=== PATIENT | male | born 1995 | race Caucasian/White ===

== ENCOUNTER 2021-08-05 08:49 | Emergency (ER) | payer OTHER, MEDICAID, SELFPAY ==
[2021-08-05 09:04] VITALS: BP 158/88; PULSE 94; RESP 17; TEMP 36.9; O2SAT 100; BMI 25.7
--- NOTE | 2021-08-05 09:08 | ED.DENTAL ---
HPI - Dental/Oral General Chief complaint: Dental/Oral Stated complaint: sores on the side of tounge Time Seen by Provider: 08/05/21 09:03 Source: patient Mode of arrival: Ambulatory Limitations: no limitations History of Present Illness HPI Narrative: This is a 6-year-old male who presents with sores on the right side of his tongue. Patient states he started to developed dental abscess and swelling and pain of his right jaw. Patient states he saw the dentist. They started him on Augmentin. Patient noted that there single sore on the side of his tongue he mentioned it to the dentist but they did not really discuss it with him. He has now developed several more on that side. He has noted some white spots on his tongue and gums. Patient states that they are painful. He has not had this problem in the past. The sores were there before he started antibiotics. He states he is otherwise healthy, no prior medical issues. He was treated for gonorrhea last January and was concerned about possible infection. He is with the same partner. He states he received appropriate treatment as did she. Patient has had a little bit of sore throat and discomfort. No difficulty with swallowing, no speech changes. No fevers. No swelling of the oropharynx, lips or tongue. Patient does smoke, no illicit. Related Data Previous Rx's Medication Instructions Recorded nystatin 100,000 unit/mL oral 500,000 unit (5 mL) PO QID 14 Days 08/05/21 suspension #280 ml Review of Systems Review of Systems ROS Unobtainable: All systems reviewed & are unremarkable except as noted in HPI and below Patient History Social History Smoking Status: Current every day smoker Exam Narrative Exam Narrative: GEN: well nourished, well appearing male, alert and oriented x 3, patient appears to be in mild distress. HEENT: Atraumatic, pupils are equal round reactive to light, extraocular movements are intact, nares are clear, TMs are clear with no fluid, there is no conjunctival pallor. Throat is clear without any exudates, erythema, tonsillar enlargement or uvular deviation, patient has white discoloration of the top of the tongue he also has patchy whitish discoloration of the gums and 3 small oral ulcers on the right side of the tongue. Tissue otherwise appears pink and healthy, has poor dentition but no significant swelling, signs of fluctuance or obvious abscess on exam. HEART: Regular rate and rhythm without murmur, clicks, rubs. LUNGS:Lungs clear to auscultation, no wheezes, rales, crackles, chest moves symmetrically ABD:bowel sounds normal, soft, non-tender, no guarding, rebound, rigidity, no masses noted, no hepatosplenomegaly MSCL: normal gait NEURO:CN 2-12 intact, sensation normal SKIN: No rash, erythema or other skin changes. Initial Vital Signs Initial Vital Signs: Vital Signs Temperature 98.5 F 08/05/21 09:04 Pulse Rate 94 H 08/05/21 09:04 Respiratory Rate 17 08/05/21 09:04 Blood Pressure 158/88 H 08/05/21 09:04 Pulse Oximetry 100 08/05/21 09:04 Course Orders Ordered: ED Orders 08/05/21 09:20 Chlamydia/Gonorrhea Pharyngeal Stat Vital Signs Vital signs: Vital Signs - 8 hr 08/05/21 09:04 Temperature 98.5 F Pulse Rate 94 H Respiratory Rate 17 Blood Pressure 158/88 H Pulse Oximetry 100 MDM - Dental/Oral Lab Data Labs: Lab Results 08/05/21 Range/Units 09:43 C.trachomatis RNA (TMA) Negative (Negative) N.gonorrhoeae RNA (TMA) Negative (Negative) [facility] Narrative Medical decision making narrative: This is a 26 old male with sores on the side of his tongue as well as recent dental infection. Patient is on amoxicillin but source showed up before he started antibiotics. He is being treated for a dental abscess. He has patches of whitish discoloration that seem most consistent with thrush. He is concerned about possible gonorrhea and was treated appropriately with antibiotics as well as his partner last January. Patient was swabbed but not initiated on treatment as his physical exam does not appear consistent. Plan to start oral nystatin. Patient to follow-up with his dentist for recheck. Discharge Plan Departure Patient Disposition: Home Clinical Impression: Oral ulcer Instructions: Thrush-Adult Activity Restrictions/Additional Instructions: Please follow-up with the dentist for recheck and to make sure that your ulcers and skin changes inside your mouth are resolving. If these are persisting even after treatment and her culture is negative you should have further evaluation for immune suppression and full STI testing. Your culture is pending and usually takes several days to result. If positive you should receive a phone call. Here welcome to call to follow up your results. Smoking also increases your risk of thrush Swish nystatin 4 times daily in her mouth and spit for 14 days. Prescription sent to [facility] in [place]. Please return for increasing swelling, external rash, redness, swelling of lips, tongue or mouth difficulty or inability to swallow urine saliva secretions or other new or concerning symptoms. Prescriptions: New nystatin 100,000 unit/mL suspension 500,000 unit PO QID 14 Days Qty: 280 0RF Rx Instructions: administer 1/2 of dose in each side of the mouth
[2021-08-07 03:32] LABS: C.trachomatis RNA Negative (Negative); N.gonorrhoeae RNA Negative (Negative)
== END 2021-08-05 09:47 | disposition home or self-care (01) ==
PROVIDERS: Emergency Provider Emergency Medicine
DX: K12.1 Other forms of stomatitis (principal)
CPT/HCPCS: 87491; 87591; 99281; 99282

== ENCOUNTER 2021-11-26 09:08 | Emergency (ER) | payer OTHER, MEDICAID, SELFPAY ==
[2021-11-26 09:22] VITALS: BP 141/75; PULSE 103; RESP 18; TEMP 36.4; O2SAT 99; BMI 25.7
--- NOTE | 2021-11-26 09:26 | DI.RAD.S_ITS ---
PROCEDURE: XR WRIST LT MIN 3V INDICATIONS: deformity TECHNIQUE: 4 views of the wrist were acquired. COMPARISON: None. FINDINGS: Bones: Postsurgical changes of prior ORIF of the distal left radius. There is a comminuted, intra-articular fracture of the distal left radius. There is also a minimally displaced ulnar styloid process fracture. Scaphoid view: No definite scaphoid fracture seen. Scapholunate interval appears maintained. Soft tissues: No suspicious soft tissue calcifications. IMPRESSION: Minimally displaced, comminuted intra-articular fracture of the distal left radius. Minimally displaced distal ulnar styloid process fracture. Postsurgical changes of prior open reduction and internal fixation of the distal radial diaphysis. Dictated by: Demond Chakraborty M.D. on 11/26/2021 at 9:44 Approved by: Demond Chakraborty M.D. on 11/26/2021 at 9:46
[2021-11-26] MEDS: HYDROCODONE/ACET 5/325 TABLET 2 TAB PO (09:32)
--- NOTE | 2021-11-26 09:32 | ED.UPPEXIN ---
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 Patient complains of pain and deformity to the left wrist. Dorsally. Patient states last night at 9:30 p.m.. On his [employer] he was walking down in his dog tripped him up on the steps. Fell down posting out his left hand and wrist. Pain was tolerable last night but awoke this morning with a lot of pain. No numbness or tingling to the fingers or thumb. Previous history forearm injury with surgery, surgical scar noted. Not recent. Denies any other injuries. Related Data Previous Rx's Medication Instructions Recorded hydrocodone 5 mg-acetaminophen 325 1 tab PO Q4-5H PRN pain #24 tabs 11/26/21 mg tablet ondansetron 4 mg disintegrating 4 mg PO Q8H PRN nausea and 11/26/21 tablet vomiting #20 tabs Allergies Allergy/AdvReac Type Severity Reaction Status Date / Time No Known Drug Allergies Allergy Verified 11/26/21 09:26 Review of Systems Review of Systems Narrative: GENERAL: Denies chills, fatigue, malaise, fever, sweats. HEENT: Denies sinus pain, ear pain, sore throat RESPIRATORY: Denies dyspnea, cough CARDIOVASCULAR: Denies chest pain, palpitations GASTROINTESTINAL: Denies nausea, vomiting, abdominal pain : Denies dysuria, frequency, hematuria MUSCULOSKELETAL: Positive for muscle or bony pain SKIN: Denies rash, skin lesions NEUROLOGIC: Denies weakness, numbness ROS Unobtainable: All systems reviewed & are unremarkable except as noted in HPI and below Patient History Social History Smoking Status: Current every day smoker Smoking Status: Current every day smoker tobacco type: cigarettes alcohol intake frequency: a few times a month Substance Use Type: marijuana Exam Narrative Exam Narrative: GENERAL: in no distress, not toxic not dyspneic HEAD: Normocephalic. EYES: Pupils equal round No scleral icterus. EXTREMITIES: Examination left upper extremity. Nontender shoulder and elbow. There is deformity at the dorsal surface at the radius side of the left wrist. Limited range of motion due to pain and deformity. Light touch intact to fingers and thumb. Strong radial pulse. Brisk cap refills. NEURO: AOx4. SKIN: Warm and dry PSYCH: Not anxious, is cooperative Initial Vital Signs Initial Vital Signs: Vital Signs Temperature 97.6 F 11/26/21 09:22 Pulse Rate 103 H 11/26/21 09:22 Respiratory Rate 18 11/26/21 09:22 Blood Pressure 141/75 H 11/26/21 09:22 Pulse Oximetry 99 11/26/21 09:22 Oxygen Delivery Method 11/26/21 09:22 Procedures Orthopedic Fracture Reduction Fracture #1: Time of procedure: 10:59 Side: left Fracture Reduction Location: radius Analgesia: hematoma block Technique: traction/counter-traction Post Reduction X-rays Demonstrate: other (Improved alignment) Post-reduction neuro exam: intact Post-reduction vascular exam: intact Splint Applied: Yes Patient Tolerated Procedure: Well Orthopedic Splinting/Casting Injury #1: Time of procedure: 11:00 Side: left Upper Extremity Injury Location: wrist Upper Extremity Immobilizer: sugar tong splint Other Orthopedic Equipment: other (Sling) Post splinting neuro exam: intact Post splinting vascular exam: intact Placed by: Provider Course Course Course Narrative: No new issues during course of stay Orders Ordered: ED Orders 11/26/21 10:56 XR wrist LT 2V Stat Discontinued Medications Hydrocodone Bitart/Acetaminophen (Hydrocodone/Acet 5/325 Tablet) 2 tab PO NOW ONE Stop: 11/26/21 09:30 Last Admin: 11/26/21 09:32 Dose: 2 tab Documented By: JOSEPH Lidocaine HCl (Lidocaine 2% Inj Mdv 20ml) 1 ml INJ INTRA-OP ONE Stop: 11/26/21 09:41 Last Admin: 11/26/21 09:46 Dose: Not Given Documented By: MANUELA Lidocaine HCl (Lidocaine 2% Inj Sdv) 5 ml INJ INTRA-OP ONE Stop: 11/26/21 09:44 Last Admin: 11/26/21 09:56 Dose: 5 ml Documented By: MANUELA Reevaluation(s) Reevaluation #1: Pain control at time of discharge. 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 Return precautions reviewed with him. He desires discharge home. Referral for Orthopedics given. Consultations Consultation #1: Spoke with , Orthopedics. Understands tried to reduce however injury greater than 12 hours and may be limited by muscular spasticity to reduce more. Reviewed with her splinting, patient did not want wrist splinting done Vital Signs Vital signs: Vital Signs - 8 hr 11/26/21 11:44 Pulse Rate 92 H Respiratory Rate 16 Blood Pressure 138/78 Pulse Oximetry 98 Oxygen Delivery Method Room Air MDM - Extremity Injury (Upper) Differential Diagnosis Differential diagnosis: Likely sprain and strain of wrist and fracture of wrist Imaging Data Extremity x-ray #1: Radiologist's Impression: [address] [address] XRay Report Signed Patient: Cornell Brown MR#: [id number] : 1995 Acct:[id number] Age/Sex: 26 / M Date of Service: 11/26/21 Loc: ED Accession Number: [id number] ?? Procedure: XR wrist LT min 3V Ordering Provider: Enzo Urban MD PROCEDURE:? XR WRIST LT MIN 3V ? INDICATIONS: deformity ? TECHNIQUE:? 4 views of the wrist were acquired.? ? COMPARISON:? None. ? FINDINGS:? ? Bones:? Postsurgical changes of prior ORIF of the distal left radius.? There is a comminuted, intra-articular fracture of the distal left radius.? There is also a minimally displaced ulnar styloid process fracture. ? Scaphoid view:? No definite scaphoid fracture seen.? Scapholunate interval appears maintained. ? Soft tissues:? No suspicious soft tissue calcifications.? ? IMPRESSION:? Minimally displaced, comminuted intra-articular fracture of the distal left radius. ? Minimally displaced distal ulnar styloid process fracture. ? Postsurgical changes of prior open reduction and internal fixation of the distal radial diaphysis. ? ? Dictated by: Demond Chakraborty M.D. on 11/26/2021 at 9:44 ? ? Approved by: Demond Chakraborty M.D. on 11/26/2021 at 9:46 ? Extremity x-ray #2: Radiologist's Impression: [address] [address] XRay Report Signed Patient: Cornell Brown MR#: [id number] : 1995 Acct:[id number] Age/Sex: 26 / M Date of Service: 11/26/21 Loc: ED Accession Number: [id number] ?? Procedure: XR wrist LT 2V Ordering Provider: Enzo Urban MD PROCEDURE:? XR WRIST LT 2V ? INDICATIONS: Postreduction ? TECHNIQUE:? 2 views of the wrist were acquired.? ? COMPARISON:? [facility], CR, XR WRIST LT MIN 3V, 11/26/2021, 9:26. ? FINDINGS:? ? Bones:? Overlying casting material obscures fine bony detail.? Redemonstrated comminuted transverse fracture of the distal radius with mild dorsal angulation/displacement of the distal fragment.? Alignment is not substantially changed.? Similar alignment of the mildly displaced acute ulnar styloid fracture.? Prior plate and screw fixation of the distal radius present as before. ? Soft tissues:? No suspicious soft tissue calcifications.? ? IMPRESSION:? Post reduction images of the wrist.? No substantial change in alignment of acute distal radius and ulnar styloid fractures. ? ? Dictated by: Cheo Bermudez M.D. on 11/26/2021 at 11:25 ? ? Approved by: Cheo Bermudez M.D. on 11/26/2021 at 11:28 ? MDM Narrative Medical decision making narrative: Appropriate for discharge home. Patient tolerated splinting very well. Did not want to try to redo the splint for longer length as patient states is too painful for him to rewrap. It does extend past the wrist. Return precautions reviewed with him. 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 Discharge Plan Departure Patient Disposition: Home Clinical Impression: Distal radius fracture, left Instructions: DI for Distal Radius Fracture Activity Restrictions/Additional Instructions: No driving or operating machinery today or when taking prescribed pain medication. Keep in splint until office appointment with . Call office today for office recheck next week. Return if worse if any questions or concerns. Use sling for support as well. Prescriptions: New hydrocodone-acetaminophen 5-325 mg tablet 1 tab PO Q4-5H PRN (Reason: pain) Qty: 24 0RF ondansetron 4 mg tablet,disintegrating 4 mg PO Q8H PRN (Reason: nausea and vomiting) Qty: 20 0RF Referrals: Miscellaneous,MD Kenton [Primary Care Provider] - Danielle Smith MD [Physician] - Visit Report Forms: Patient Portal/API
[2021-11-26] MEDS: LIDOCAINE 2% INJ SDV 5 ML INJ (09:56)
--- NOTE | 2021-11-26 10:56 | DI.RAD.S_ITS ---
PROCEDURE: XR WRIST LT 2V INDICATIONS: Postreduction TECHNIQUE: 2 views of the wrist were acquired. COMPARISON: [facility], , XR WRIST LT MIN 3V, 11/26/2021, 9:26. FINDINGS: Bones: Overlying casting material obscures fine bony detail. Redemonstrated comminuted transverse fracture of the distal radius with mild dorsal angulation/displacement of the distal fragment. Alignment is not substantially changed. Similar alignment of the mildly displaced acute ulnar styloid fracture. Prior plate and screw fixation of the distal radius present as before. Soft tissues: No suspicious soft tissue calcifications. IMPRESSION: Post reduction images of the wrist. No substantial change in alignment of acute distal radius and ulnar styloid fractures. Dictated by: Cheo Bermudez M.D. on 11/26/2021 at 11:25 Approved by: Cheo Bermudez M.D. on 11/26/2021 at 11:28
[2021-11-26 11:44] VITALS: BP 138/78; PULSE 92; RESP 16; O2SAT 98
== END 2021-11-26 11:45 | disposition home or self-care (01) ==
PROVIDERS: Emergency Provider Emergency Medicine
DX: S52.502A Unspecified fracture of the lower end of left radius, initial encounter for closed fracture (principal); W19.XXXA Unspecified fall, initial encounter
CPT/HCPCS: 25605; 73100; 73110; 99283; 99284

== ENCOUNTER → 2021-12-06 13:29 | Outpatient (CLI) | payer OTHER, MEDICAID, SELFPAY ==
[2021-12-06 14:41] LABS: COVID19 -Nasal RAPID Negative (Negative)
== END ==
PROVIDERS: Referring Provider Orthopaedic Surgery; Visit Provider Orthopaedic Surgery
DX: Z20.822 Contact with and (suspected) exposure to COVID-19 (principal)
CPT/HCPCS: 87635; C9803

== ENCOUNTER 2021-12-07 13:12 | Day surgery (SDC) | payer OTHER, MEDICAID, SELFPAY ==
[2021-12-07] VITALS (11 sets, daily range): BP systolic 110–139; BP diastolic 62–83; PULSE 48–63; RESP 9–16; TEMP 36.5–37.7; O2SAT 96–100; BMI 26.5
[2021-12-07] MEDS: LACTATED RINGERS 1,000 ML 120 ML IV (13:36)
--- NOTE | 2021-12-07 15:17 | PM.PREOP ---
Pre-operative Note COVID-19 COVID-19 status: Negative Interval Note History & Physical reviewed/Exam performed by Physician: Yes Changes to H&P: No
--- NOTE | 2021-12-07 15:18 | PM.OP.1 ---
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 He fell and injured his left wrist noted to have a left distal intra-articular radius fracture. He has a prior history of a left radius fracture fixed with open reduction internal fixation with retained plate. Surgeon: Danielle Smith Click Yes if Unassisted: Yes Anesthesia Type: General Operative Notes Findings: Acceptable reduction and stable fixation Specimen(s): none sent Prosthetic devices, grafts, tissues, transplants, or devices: three 0.62 K-wires Estimated Blood Loss (mL): 10 Blood products transfused: none Procedure in detail: Patient brought to the operating room he underwent induction of a general anesthesia. His left wrist was meticulously reduced. C-arm confirmed adequate reduction. It was fixed with three 0. 0.62 K-wires. Fracture reduction and alignment was confirmed fluoroscopically. Marcaine was meticulously injected. The patient was placed in a short-arm splint. It was dressed sterilely. He tolerated the procedure well was transferred to the in satisfactory condition. Complications: none Post-operative Condition: stable Disposition: same day surgery Plan for aftercare: Sling as needed. Okay to begin finger and elbow range of motion.
[2021-12-07] MEDS: CEFAZOLIN 2 GM/100 ML PREMIX 100 ML IV (15:42)
--- NOTE | 2021-12-07 16:03 | SUR.OPER ---
Supine on padded OR bed, head on pillow, right arm secured on padded arm boards at <90 degrees abduction,left arm draped free on black arm table, legs uncrossed, safety belt at thigh, tape over blanket over lower legs.
[2021-12-07] MEDS: BUPIVACAINE 0.5% (PF) VIAL 30 ML INJ (16:07)
[2021-12-07] MEDS: fentaNYL 100 MCG/2 ML INJ IV ×2 (16:37→16:50)
[2021-12-07] MEDS: OXYCODONE IR 5 MG TABLET PO ×2 (16:39→17:15)
--- NOTE | 2021-12-07 17:32 | SUR.PREOP ---
First Block start time 1715 . Monitoring initiated and maintained throughout procedure. . Patient remained stable throughout procedure, no adverse reactions noted. Block end time 1722.
--- NOTE | 2021-12-07 18:22 | SUR.PHASEII ---
Patient received 2 block to Left arm. Upon discharge patient denied pain to left wrist. Patient ambulated to wheelchair with steady gait. Provided written and verbal discharge instruction regarding post op care for surgery and block. Patient stated understand. Discharged patient by wheelchair to private vehicle in stable condition.
== END 2021-12-07 18:11 | disposition home or self-care (01) ==
PROVIDERS: Referring Provider Orthopaedic Surgery; Visit Provider Orthopaedic Surgery
PROC: (CPT 25490; principal; 2021-12-07 15:15)
DX: S52.572A Other intraarticular fracture of lower end of left radius, initial encounter for closed fracture (principal); W18.30XA Fall on same level, unspecified, initial encounter; F17.210 Nicotine dependence, cigarettes, uncomplicated
CPT/HCPCS: 25490; 64450; J0690; J1100; J1885; J2250; J2405; J2704; J3010

== ENCOUNTER 2022-08-28 11:18 | Emergency (ER) | payer OTHER, MEDICAID, SELFPAY ==
[2022-08-28 11:22] VITALS: BP 143/80; PULSE 74; RESP 16; TEMP 36.6; O2SAT 100; BMI 26.6
--- NOTE | 2022-08-28 11:38 | ED_ITS ---
HPI - Wound/Laceration General Chief Complaint: Wound/Laceration Stated Complaint: sliced rt leg open with boxing instructor Time Seen by Provider: 08/28/22 11:20 Source: patient Mode of arrival: Ambulatory History of Present Illness HPI narrative: 27-year-old male daily smoker with up-to-date tetanus immunization presents with significant other and a chief complaint of an accidental laceration just below his right knee on his anterior wilson. 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 He states it bled a large amount and he was able to see deep tissue prior to wrapping it tightly with bandages at [facility]. He denies numbness, tingling or weakness. He is otherwise well and free of complaint Related Data Previous Rx's Medication Instructions Recorded albuterol sulfate 90 mcg/actuation 1 - 2 inh inhalation Q4-6H PRN 04/04/22 aerosol inhaler shortness of breath or wheezing #8.5 grams fluticasone propionate 110 1 puff inhalation BID #12 grams 04/04/22 mcg/actuation HFA aerosol inhaler (Flovent HFA) methocarbamol 500 mg tablet 500 mg PO TID #30 tabs 05/19/22 Allergies Allergy/AdvReac Type Severity Reaction Status Date / Time No Known Drug Allergies Allergy Verified 08/28/22 11:24 Review of Systems Review of Systems Narrative: GENERAL: Denies chills, fatigue, malaise, fever, sweats. HEENT: Denies sinus pain, ear pain, sore throat, difficulty swallowing, dizziness. RESPIRATORY: Denies dyspnea, cough, wheezing, hemoptysis, sputum. CARDIOVASCULAR: Denies chest pain, palpitations, orthopnea, edema, GASTROINTESTINAL: Denies nausea, vomiting, abdominal pain, diarrhea, constipati on, melena. : Denies dysuria, frequency, incontinence, hematuria, urinary retention. MUSCULOSKELETAL: denies weakness, joint pain, or bony pain SKIN: D see HPI NEUROLOGIC: Denies weakness, headache, numbness, change in speech, confusion, seizures, incoordination. PSYCHIATRIC: No concerning psychosocial issues. 12 point review of systems is negative except for those stated above Patient History Medical History Hx of dental abscess (07/2021) Marijuana use Tobacco dependence Surgical History Anesthesia History of open reduction and internal fixation (ORIF) procedure Social History household members: significant other Smoking Status: Current every day smoker alcohol intake: current Smoking Status: Current every day smoker tobacco type: cigarettes alcohol intake frequency: a few times a month Substance Use Type: does not use Exam Narrative Exam Narrative: GEN: AOx3 and in mild distress EYES: Pupils are equal, round, and reactive to light and accommodation. Extraoccular muscles are intact bilaterally. There is no subconjunctival hemorrhage or exudate. CHEST: Lungs are clear to auscultation bilaterally and free of wheezes, rales, or rhonchi. Heart rate is regular rhythm, there are no murmurs, clicks, rubs, or gallops. There is no chest wall tenderness. ABD: Abdomen is soft and nontender. There is no guarding or rebound. Bowel sounds are normal in all 4 quadrants. There is no mass or organomegaly. EXT: 2 cm superficial linear laceration just inferior to right knee, no evidence of foreign body, no active bleedingFull painless ROM of all extremities with no loss of sensation or strength. SKIN: Warm, pink, and dry. No erythema or rash Initial Vital Signs Initial Vital Signs: Vital Signs Temperature 97.8 F 08/28/22 11:22 Pulse Rate 74 08/28/22 11:22 Respiratory Rate 16 08/28/22 11:22 Blood Pressure 143/80 H 08/28/22 11:22 Pulse Oximetry 100 08/28/22 11:22 Oxygen Delivery Method Room Air 08/28/22 11:22 Procedures Laceration Repair Laceration 1: Site: lower extremity Side (If applicable): right Size (cm): 2 Description: linear Depth: simple, single layer Local Anesthetic: lidocaine 1% and with epi Pre-repair: wound explored and cleansed with chlorhexadine Skin layer closed with: dermabond Course Vital Signs Vital signs: Vital Signs - 8 hr 08/28/22 11:22 Temperature 97.8 F Pulse Rate 74 Respiratory Rate 16 Blood Pressure 143/80 H Pulse Oximetry 100 Oxygen Delivery Method Room Air MDM - Wound/Laceration MDM Narrative Medical decision making narrative: [27] year old patient presents with right leg laceration Multiple etiologies for patient's symptoms considered including, but not limited to: [ superficial laceration versus vessel injury versus retained foreign body versus other] Prior Charts reviewed in our EMR if available Primary Historian: patient Patient's symptoms improved over duration of stay with above-stated therapies. wound not terribly deep, no foreign body, clean and superficial, not overlying joint, appropriate for tissue adhesive only. Patient given return precautions Findings and discharge diagnosis discussed with patient/family followed by verbalization of understanding Return precautions discussed with patient/family whom verbalize understanding of diagnosis and plan Discharge Plan Departure Patient Disposition: Home Clinical Impression: Laceration Instructions: DI for Laceration Repair Activity Restrictions/Additional Instructions: Please keep the wound clean and dry to the best of your ability. Please monitor for signs of infection such as redness to the skin or increasing pain. Have the sutures/silas removed by your doctor in about 7 days. If you are unable to get into your doctor, we would be happy to remove the sutures/silas in that same timeframe. Prescriptions: No Action albuterol sulfate 90 mcg/actuation HFA aerosol inhaler 1 - 2 inh inhalation Q4-6H PRN (Reason: shortness of breath or wheezing) Qty: 8.5 11RF fluticasone propionate [Flovent HFA] 110 mcg/actuation HFA aerosol inhaler 1 puff inhalation BID Qty: 12 11RF methocarbamol 500 mg tablet 500 mg PO TID Qty: 30 1RF Rx Instructions: 1-2 tablets three times daily as needed for spasms/pain Referrals: Leta Mahoney DO [Primary Care Provider] - Stand Alone Forms: Patient Portal/API
== END 2022-08-28 11:45 | disposition home or self-care (01) ==
PROVIDERS: Emergency Provider Emergency Medicine; PCP Family Medicine
DX: S81.011A Laceration without foreign body, right knee, initial encounter (principal); W26.8XXA Contact with other sharp object(s), not elsewhere classified, initial encounter
CPT/HCPCS: 99282

== ENCOUNTER 2023-05-04 14:45 | Emergency (ER) | payer SELFPAY ==
[2023-05-04 14:45] VITALS: BP 126/74; PULSE 110; RESP 20; TEMP 36.9; O2SAT 100; BMI 24.3
--- NOTE | 2023-05-04 14:52 | DI.RAD.S_ITS ---
PROCEDURE: XR WRIST LT MIN 3V INDICATIONS: pain s/p arrest, swelling TECHNIQUE: 4 views of the wrist were acquired. COMPARISON: [facility], CR, XR WRIST LT MIN 3V, 11/26/2021, 9:26. FINDINGS: Bones: No acute fractures or dislocations. Chronic ulnar styloid process fracture. Chronic distal radius fracture which is healed without significant deformity. Partially visualized fixation hardware in the distal radius. No suspicious bony lesions. Soft tissues: No suspicious soft tissue calcifications. IMPRESSION: No acute bony abnormality. Dictated by: Cecelia Thibodeaux MD, PhD on 05/04/2023 at 15:40 Approved by: Cecelia Thibodeaux MD, PhD on 05/04/2023 at 15:41
--- NOTE | 2023-05-04 14:53 | DI.RAD.S_ITS ---
PROCEDURE: XR HAND RT MIN 3V INDICATIONS: pain s/p arrest, pain TECHNIQUE: 3 views of the hand(s) acquired. COMPARISON: None. FINDINGS: Bones: No acute fractures or dislocations. Chronic 5th metacarpal fracture which is healed with mild deformity. Carpal bones are normally aligned. No suspicious bony lesions. Soft tissues: No suspicious soft tissue calcifications. IMPRESSION: No acute bony abnormality. Dictated by: Cecelia Thibodeaux MD, PhD on 05/04/2023 at 15:39 Approved by: Cecelia Thibodeaux MD, PhD on 05/04/2023 at 15:40
--- NOTE | 2023-05-04 14:53 | DI.RAD.S_ITS ---
PROCEDURE: XR KNEE LT 3V INDICATIONS: pain s/p jump, running during arrest TECHNIQUE: 3 views of the knee were acquired. COMPARISON: None. FINDINGS: Bones: No fractures or dislocations. No suspicious bony lesions. Partially visualized tibial fixation hardware. Soft tissues: No joint effusion. No suspicious soft tissue calcifications. IMPRESSION: No acute bony abnormality or significant effusion. Dictated by: Cecelia Thibodeaux MD, PhD on 05/04/2023 at 15:39 Approved by: Cecelia Thibodeaux MD, PhD on 05/04/2023 at 15:39
--- NOTE | 2023-05-04 14:56 | PC.NURSE ---
pt alert, oriented, answering questions appropriately, nad noted. w/ [place]. pt also c/o R hand pain and swelling. provider aware. orders in.
--- NOTE | 2023-05-04 15:43 | ED_ITS ---
HPI - Extremity Injury (Lower) <Xiomara Egan PA-C - Last Filed: 05/06/23 09:44> General Chief Complaint: Extremity Injury, Lower Stated Complaint: wrist and knee pain Time Seen by Provider: 05/04/23 15:43 Source: patient Mode of arrival: EMS History of Present Illness HPI Narrative: 28-year-old male comes in by EMS in custody of law with concern for left wrist and left knee pain as well as right hand pain after he fell while running from police today. Patient states that he jumped over an embankment and landed in a large ditch or swell and since then he has been having some pain in his left knee and his left wrist. He acknowledges that he has a history of a fracture in his right hand and states his right hand is also painful. He states he tried to land mostly on his right leg to avoid landing hard on his left leg because he does have a stewart in his left leg. Describes the pain as a dull pain in all locations. He denies hitting his head loss of consciousness shortness of breath chest pain or any other injuries. He states that he does not want any Tylenol or ibuprofen for pain as ?these never work for me?. Related Data Previous Rx's Medication Instructions Recorded albuterol sulfate 90 mcg/actuation 1 - 2 inh inhalation Q4-6H PRN 04/04/22 aerosol inhaler shortness of breath or wheezing #8.5 grams fluticasone propionate 110 1 puff inhalation BID #12 grams 04/04/22 mcg/actuation HFA aerosol inhaler (Flovent HFA) methocarbamol 500 mg tablet 500 mg PO TID #30 tabs 05/19/22 Allergies Allergy/AdvReac Type Severity Reaction Status Date / Time No Known Drug Allergies Allergy Verified 08/28/22 11:24 Review of Systems <Xiomara Egan PA-C - Last Filed: 05/06/23 09:44> Review of Systems Narrative: See HPI Patient History <Xiomara Egan PA-C - Last Filed: 05/06/23 09:44> Medical History Marijuana use Tobacco dependence Hx of dental abscess (07/2021) Surgical History Anesthesia History of open reduction and internal fixation (ORIF) procedure Social History household members: significant other Smoking Status: Current every day smoker alcohol intake: current Smoking Status: Current every day smoker tobacco type: cigarettes alcohol intake frequency: a few times a month Substance Use Type: does not use Exam <Xiomara Egan PA-C - Last Filed: 05/06/23 09:44> Narrative Exam Narrative: GENERAL: 28 year old patient appears stated age. Well-developed patient, in mild distress. HEAD: Atraumatic. Normocephalic. EYES: Pupils equal round and reactive. Extraocular motions intact. No scleral icterus. No injection or drainage. ENT: Nose without bleeding, purulent drainage. Airway patent. NECK: Trachea midline. Non tender CARDIOVASCULAR: Regular rate and rhythm without murmurs, gallops, or rubs. RESPIRATORY: Clear to auscultation. Breath sounds equal bilaterally. No wheezes, rales, or rhonchi. GASTROINTESTINAL: Abdomen soft, non-tender, nondistended. EXTREMITIES: There is no appreciable swelling of the left wrist right hand or left knee. There is normal active range of motion of all extremities, patient does ambulate with a slight limp favoring his left leg. Strength is intact in all extremities equal bilateral. There is no open wound or bruising noted. Patient endorses pain with palpation over the anterior left knee just lateral to the tibial tuberosity as well as pain with palpation of the right hand at the 5th metacarpal, and mild discomfort with palpation of the left wrist. No edema or joint tenderness. BACK: Nontender without deformity or crepitance. No flank tenderness. NEURO: AOx3. SKIN: No rash or erythema of visible areas Initial Vital Signs Initial Vital Signs: Vital Signs Temperature 98.4 F 05/04/23 14:45 Pulse Rate 110 H 05/04/23 14:45 Respiratory Rate 20 05/04/23 14:45 Blood Pressure 126/74 05/04/23 14:45 Pulse Oximetry 100 05/04/23 14:45 Oxygen Delivery Method Room Air 05/04/23 14:45 <Angie Cosme DO - Last Filed: 05/06/23 14:09> Initial Vital Signs Initial Vital Signs: Vital Signs Temperature 98.4 F 05/04/23 14:45 Pulse Rate 110 H 05/04/23 14:45 Respiratory Rate 20 05/04/23 14:45 Blood Pressure 126/74 05/04/23 14:45 Pulse Oximetry 100 05/04/23 14:45 Oxygen Delivery Method Room Air 05/04/23 14:45 Course <Xiomara Egan PA-C - Last Filed: 05/06/23 09:44> Orders Ordered: ED Orders 05/04/23 14:52 XR wrist LT min 3V Stat 05/04/23 14:53 XR hand RT min 3V Stat XR knee LT 3V Stat Vital Signs Vital signs: Vital Signs - 8 hr 05/04/23 14:45 Temperature 98.4 F Pulse Rate 110 H Respiratory Rate 20 Blood Pressure 126/74 Pulse Oximetry 100 Oxygen Delivery Method Room Air <Angie Cosme DO - Last Filed: 05/06/23 14:09> Orders Ordered: ED Orders 05/04/23 14:52 XR wrist LT min 3V Stat 05/04/23 14:53 XR hand RT min 3V Stat XR knee LT 3V Stat Vital Signs Vital signs: Vital Signs - 8 hr 05/04/23 14:45 Temperature 98.4 F Pulse Rate 110 H Respiratory Rate 20 Blood Pressure 126/74 Pulse Oximetry 100 Oxygen Delivery Method Room Air MDM - Extremity Injury (Lower) <UNIQUE Lara Last Filed: 05/06/23 09:44> Differential Diagnosis Differential diagnosis: Likely other (Muscle strain, sprain, fall, fit for skilled nursing) Medical Records Attestation: I reviewed the patient's medical records. Imaging Data Extremity x-ray #1: My Impression: Agree with Radiology interpretation Radiologist's Impression: [address] [address] XRay Report Signed Patient: Cornell Brown MR#: [id number] : 1995 Acct:[id number] Age/Sex: 28 / M Date of Service: 05/04/23 Loc: ED Accession Number: [id number] Procedure: XR hand RT min 3V Ordering Provider: Enzo Urban MD PROCEDURE: XR HAND RT MIN 3V INDICATIONS: pain s/p arrest, pain TECHNIQUE: 3 views of the hand(s) acquired. COMPARISON: None. FINDINGS: Bones: No acute fractures or dislocations. Chronic 5th metacarpal fracture which is healed with mild deformity. Carpal bones are normally aligned. No suspicious bony lesions. Soft tissues: No suspicious soft tissue calcifications. IMPRESSION: No acute bony abnormality. Dictated by: Cecelia Thibodeuax MD, PhD on 05/04/2023 at 15:39 Approved by: Cecelia Thibodeaux MD, PhD on 05/04/2023 at 15:40 Extremity x-ray #2: My Impression: Agree with Radiology interpretation Radiologist's Impression: [address] [address] XRay Report Signed Patient: Cornell Brown MR#: [id number] : 1995 Acct:[id number] Age/Sex: 28 / M Date of Service: 05/04/23 Loc: ED Accession Number: [id number] Procedure: XR knee LT 3V Ordering Provider: Enzo Urban MD PROCEDURE: XR KNEE LT 3V INDICATIONS: pain s/p jump, running during arrest TECHNIQUE: 3 views of the knee were acquired. COMPARISON: None. FINDINGS: Bones: No fractures or dislocations. No suspicious bony lesions. Partially visualized tibial fixation hardware. Soft tissues: No joint effusion. No suspicious soft tissue calcifications. IMPRESSION: No acute bony abnormality or significant effusion. Dictated by: Cecelia Thibodeaux MD, PhD on 05/04/2023 at 15:39 Approved by: Cecelia Thibodeaux MD, PhD on 05/04/2023 at 15:39 Extremity x-ray #3: My Impression: Agree with Radiology interpretation Radiologist's Impression: [address] [address] XRay Report Signed Patient: Cornell Brown MR#: [id number] : 1995 Acct:[id number] Age/Sex: 28 / M Date of Service: 05/04/23 Loc: ED Accession Number: [id number] Procedure: XR wrist LT min 3V Ordering Provider: Enzo Urban MD PROCEDURE: XR WRIST LT MIN 3V INDICATIONS: pain s/p arrest, swelling TECHNIQUE: 4 views of the wrist were acquired. COMPARISON: [facility], CR, XR WRIST LT MIN 3V, 11/26/2021, 9:26. FINDINGS: Bones: No acute fractures or dislocations. Chronic ulnar styloid process fracture. Chronic distal radius fracture which is healed without significant deformity. Partially visualized fixation hardware in the distal radius. No suspicious bony lesions. Soft tissues: No suspicious soft tissue calcifications. IMPRESSION: No acute bony abnormality. Dictated by: Cecelia Thibodeaux MD, PhD on 05/04/2023 at 15:40 Approved by: Cecelia Thibodeaux MD, PhD on 05/04/2023 at 15:41 [facility] Narrative Medical decision making narrative: This is a 28-year-old male in no obvious distress who comes in in custody of law brought in by EMS with concern for possible injuries after he had a fall while running from police today. Exam does not suggest sprain/strain as there is no swelling present there is some mild tenderness present about the left knee where patient has had a previous surgery and has a stewart in place, however range of motion/sensation/circulation is intact and patient ambulates with out difficulty with very slight limp favoring left leg. X-rays are obtained of patient's reportedly painful left wrist, left knee and right hand. Right hand x-ray is notable for previous boxer's fracture of the 5th metacarpal which is the site of the patient's pain today. Also x-rays are negative for injury of the left wrist and no effusion or apparent injury to the left knee. Based on exam no indication for more advanced imaging at this time. Patient is cleared as fit for skilled nursing [facility] during his stay here in the emergency department. Prior to discharge patient is provided with and wrapped with Juan wraps for the left knee left wrist and right hand with approval of [place]. Return precautions provided, follow-up plan discussed, all questions answered. Discharge Plan Departure Patient Disposition: Released, Other Clinical Impression: Hand pain, right, Acute pain of left knee, Acute pain of left wrist Fall Qualifiers: Encounter type: initial encounter Qualified Code(s): W19.XXXA - Unspecified fall, initial encounter Activity Restrictions/Additional Instructions: *You have been diagnosed with [left wrist pain, right hand pain and left knee pain] *What to do: *Please continue to take your regular medications as directed. [ ] New medication prescriptions sent to your pharmacy: [ ] [ ] New medication written as a paper prescription [X ] No new medications given *Please follow up with your primary care provider in 2-3 days, call for an appointment. Let them know you were seen in the Emergency Department and that we ask that you be seen in follow up. We will electronically transmit a record of today's note if your PCP is in our system. Who had a fall today and came in to the emergency department in custody of law enforcement, concern for pain of her left wrist your right hand and her left knee. We x-rayed all of these areas and we do not see any evidence of fracture. On your exam there is no appreciable swelling you do have some areas of tenderness, you have a previous well-healed fracture in your right hand from a previous injury and it is possible that this is painful for you because of that and you may have sustained some mild trauma to the area today. Likewise because you have a stewart in your left tibia, this could explain your knee pain as your leg took a little bit of impact when you fell, there is no evidence of fracture or abnormality and he also have no swelling at this site. To the degree that you can it has probably a good idea not to do a lot of walking on this knee and elevate it whenever you are at rest sitting or lying down. Your left wrist had good movement and range of motion and also does not have swelling so does not appear to be a sprain, I expect that this will improve over the next few days. We did place Juan wraps for you about your left knee left wrist and right hand to give you a little bit of support and compression for these areas of pain. You declined Tylenol and ibuprofen pain medications today in the ER. NO FRACTURES, NO DISLOCATION, NO EVIDENCE OF SPRAIN. FIT FOR SNF *If you do not have a primary care provider please contact the [facility] Resource line at [phone]. They will ask some questions about your medical history and help get you set up with a doctor in the community. *Return to Emergency Department if you should have any new, worsening or concerning symptoms, such as [fever greater than 101 F, shaking chills, worsening pain, persistent vomiting or other bothersome symptoms] Prescriptions: No Action albuterol sulfate 90 mcg/actuation HFA aerosol inhaler 1 - 2 inh inhalation Q4-6H PRN (Reason: shortness of breath or wheezing) Qty: 8.5 11RF fluticasone propionate [Flovent HFA] 110 mcg/actuation HFA aerosol inhaler 1 puff inhalation BID Qty: 12 11RF methocarbamol 500 mg tablet 500 mg PO TID Qty: 30 1RF Rx Instructions: 1-2 tablets three times daily as needed for spasms/pain Referrals: Leta Mahoney DO [Primary Care Provider] - Stand Alone Forms: Patient Portal/API ED Sign-out <Angie Cosme DO - Last Filed: 05/06/23 14:09> Cosign ED Attending Cosignature Attestation: I was available for consultation.
--- NOTE | 2023-05-04 16:08 | PC.NURSE ---
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
[2023-05-04 16:13] VITALS: BP 140/75; PULSE 80; RESP 18; O2SAT 100
== END 2023-05-04 16:10 | disposition home or self-care (01) ==
PROVIDERS: Emergency Provider Student in an Organized Health Care Education/Training Program; PCP Family Medicine
DX: M25.532 Pain in left wrist (principal); M25.562 Pain in left knee; M79.641 Pain in right hand; W17.89XA Other fall from one level to another, initial encounter
CPT/HCPCS: 73110; 73130; 73562; 99283